=== PATIENT | female | born 1975 | race Caucasian/White ===

== ENCOUNTER 2024-07-16 23:46 | Emergency (ER) | payer SELFPAY ==
[~2024-07-16] VITALS: Ht 170.2 cm; Wt 98.0 kg
[2024-07-17 00:16] VITALS: O2SAT 100
[2024-07-17 00:59] LABS: BASOPHILS % 1.5 % (0.0-2.0); EOSINOPHILS % 1.4 % (0.0-5.0); HEMOGLOBIN. 7.6 g/dL (12.0-16.0); MEAN CORPUSCULAR HEMOGLOBIN 16.7 pg (28.0-32.0); MEAN CORPUSCULAR HGB CONC 29.4 g/dL (31.0-37.0); MEAN CORPUSCULAR VOLUME 56.8 fL (81.0-99.0); MEAN PLATELET VOLUME 8.7 fl (7.4-10.4); MONOCYTES % 4.2 % (2.0-8.0); NEUTROPHILS % 79.9 % (40.0-76.0); PLATELET 407 x1000/uL (130-400); RED BLOOD CELL COUNT 4.58 mill/uL (4.2-5.4); RED CELL DISTRIBUTION WIDTH 19.9 % (11.6-14.6); WHITE BLOOD COUNT 8.6 x1000/uL (4.5-11.0)
[2024-07-17 01:11] LABS: CHLORIDE 107 mEq/L (98-107); SODIUM 137 mEq/L (136-145)
[2024-07-17 01:12] LABS: CALCIUM 9.4 mg/dL (8.7-10.4); CARBON DIOXIDE 23 mEq/L (21-32)
[2024-07-17 01:16] LABS: ADD RBC MORPHOLOGY YES; DIFFERENTIAL COMMENT 1
[2024-07-17 01:17] LABS: CREATININE 0.6 mg/dL (0.6-1.0); GLUCOSE 144 mg/dL (70-105); UREA NITROGEN BLOOD 7 mg/dL (9-23)
[2024-07-17 01:29] LABS: HCG SCREEN NEGATIVE
[2024-07-17 01:39] LABS: TROPONIN I HIGH SENSITIVITY < 4 ng/L (3.0-34)
[2024-07-17] MEDS: KETOROLAC 30MG/ML VIAL IM NR (02:08)
[2024-07-17 03:38] LABS: HYPOCHROMASIA 2+; MICROCYTOSIS 2+; PLATELET ESTIMATE SLIGHTLY INCREASED
[2024-07-17] MEDS: HYDROCODONE/ACETAMINOPHEN 5/325MG TABLET PO ONE (04:14)
[2024-07-17 04:20] LABS: TROPONIN I HIGH SENSITIVITY < 4 ng/L (3.0-34)
[2024-07-17] MEDS ORDERED: ASPI-1497 MT (04:23)
[2024-07-17 04:30] VITALS: BP 127/86; PULSE 75; RESP 17; TEMP 36.94740; O2SAT 100
== END 2024-07-17 05:01 | disposition home or self-care (01) ==
LOC: ER 23:46
DX: R07.89 Other chest pain (principal); D64.9 Anemia, unspecified; I10 Essential (primary) hypertension
CPT/HCPCS: 99285; 81025; 71045; 80048; 84703; 85025; 84484; 36415; 93005; 96372; J1885